=== PATIENT | female | born 1980 | race Caucasian/White ===

== ENCOUNTER → 2019-09-13 | Outpatient (CLI) | payer BC ==
[2019-09-13 16:25] LABS: Basophils # (A) 0.1 k/uL (0-0.2); Basophils % (A) 2 %; Eosinophils % (A) 1 %; HCT 36.8 % (34.0-46.0); HGB 11.9 gm/dL (11.4-16.0); Lymphocytes # (A) 1.8 k/uL (1.0-4.8); Lymphocytes % (A) 45 %; MCH 29.6 pg (25.0-35.0); MCHC 32.3 g/dL (31.0-37.0); MCV 91.6 fL (80.0-100.0); Mean Platelet Volume 8.5; Monocytes # (A) 0.3 k/uL (0-1.0); Monocytes % (A) 8 %; Neutrophils # (A) 1.6 k/uL (1.3-7.7); Neutrophils % (A) 41 %; Platelet Count 162 k/uL (150-450); RBC 4.01 m/uL (3.80-5.40); RDW 12.5 % (11.5-15.5)
== END | disposition home or self-care (01) ==
LOC: LABWHC1 15:50
PROVIDERS: ATTEND Obstetrics & Gynecology
DX: Z01.812 Encounter for preprocedural laboratory examination (principal)
CPT/HCPCS: 36415; 85025

== ENCOUNTER 2019-10-01 07:41 | Day surgery (SDC) | payer BC ==
[2019-09-26 15:54] VITALS: BMI 27.1
[~2019-10-01 07:41] MED LIST: DEXAMETHASONE SOD PHOSPHATE 10 MG/ML 1 ML VIAL IV ONE; LIDOCAINE 1% 20 ML VIAL (10MG/ML) FOR IV START INTRADERMA PRN; MIDAZOLAM 2 MG/2 ML VIAL IV PRN; ONDANSETRON 4 MG/2 ML VIAL IVP ONE; Pre Op ABX Message 1 EACH MISC MISCELLANE ONE; fentaNYL (PF) 50 MCG/ML 2 ML AMP IV PRN
[2019-10-01] MEDS: LACTATED RINGERS 1,000 ML IV SCH ×2 (08:27→08:59)
[2019-10-01] MEDS ORDERED: PROPOFOL 10 MG/ML 20 ML VIAL IV ONE (08:55)
[2019-10-01] MEDS ORDERED: MIDAZOLAM 2 MG/2 ML VIAL ONE (08:55)
[2019-10-01] MEDS ORDERED: fentaNYL (PF) 50 MCG/ML 2 ML AMP ONE (08:55)
[2019-10-01] MEDS ORDERED: KETOROLAC 30 MG/ML 1 ML VIAL ONE (08:55)
[2019-10-01] MEDS ORDERED: NEOSTIGMINE 1 MG/ML 10 ML VIAL ONE (08:55)
[2019-10-01] MEDS ORDERED: LIDOCAINE 1% INJ 10MG/ML (20 ML MDV) ONE (08:55)
[2019-10-01] MEDS ORDERED: ROCURONIUM BROMIDE 10 MG/ML 5 ML VIAL IV ONE (08:55)
[2019-10-01] MEDS ORDERED: GLYCOPYRROLATE 0.2 MG/ML 2 ML VIAL ONE (08:55)
[2019-10-01] MEDS ORDERED: BUPIVACAINE (PF) 0.25% 30 ML VIAL SQ ONE ×2 (08:56→09:30)
--- NOTE | 2019-10-01 09:41 | P.OP ---
Date of Procedure: 10/01/19 Preoperative Diagnosis: Undesired fertility Postoperative Diagnosis: Essentially normal-appearing female pelvis Procedure(s) Performed: Laparoscopic tubal ligation with Filshie clips Anesthesia: CARMELO Surgeon: Norma Wilson Estimated Blood Loss (ml): 5 IV fluids (ml): 600 Urine output (ml): 300 Pathology: none sent Condition: stable Operative Findings: Normal-appearing tubes and ovaries. No evidence of endometriosis, adhesions, or other anomalies. Description of Procedure: Patient is brought to the operating suite where a general anesthetic is administered without difficulty. She's placed in the dorsal lithotomy position. The cervix and vagina, perineal body, and abdomen are all prepped and draped in usual sterile fashion. The appropriate timeout is performed to assure proper patient and procedural identification. Urine hCG is negative. Antibiotics are not deemed necessary. Examination under anesthesia reveals a small anteverted uterus with negative adnexa bilaterally. Bladder is drained for 300 mL of clear yellow urine. Weighted speculum was placed into the vagina and the anterior lip of the cervix is grasped with an Allis clamp. A small acorn cannula is placed into the cervix and attached to the Allis clamp, and the speculum is removed. Attention is now drawn to the abdominal cavity. A small infraumbilical incision is made, the varies needle is placed and placement is checked with hanging drop technique. The abdomen is insufflated under low filling pressures of 6-8 mmHg for a total of 4 L of CO2 gas. Ears needle was removed. Uterus is placed in the posterior position and the trochars placed. This gold is then introduced and the placement is noted to be atraumatic. A second incision is made suprapubically, and under direct visualization a second trocar is placed. Placement again is atraumatic. Uterus is placed in the anteverted and lateral postion and the right fallopian tube is visualized in its entirety to the fimbriated end. A Filshie clip is placed in the isthmic portion of the tube with care to traverse the entire diameter of the tube into the mesal salpinx. The same procedure is carried out contralaterally, fimbriated end identified as well for proper placement. Bilaterally the ovaries appear normal. The pelvis is otherwise clean and clear, no adhesions, no endometriosis, no other anomalies noted. CO2 gas was allowed to diffuse and the small fascial incisions are inspected and noted to be clean and dry. 4-0 undyed Monocryl is used in a subcuticular manner to close the incisions. They are injected with a total of 10 mL of quarter percent Marcaine without epinephrine to aid in analgesia. Toradol is given. Instrumentation is removed from the cervix which is clean and dry. All sponge needle and enhancement counts are correct at the end of the procedure. Patient is brought back to recovery room in very good condition with stable vital signs including blood pressure 114/70, pulse 74, 99% O2 saturation. Patient will follow-up with me in the office in 2 weeks.
[2019-10-01 09:52] VITALS: TEMP 97.3
[2019-10-01 10:59] VITALS: PULSE 59; RESP 18
[2019-10-01] MEDS ORDERED: HYDROcodone/APAP 5-325MG 1 EACH TAB PO ONE (11:11)
[2019-10-01 12:17] VITALS: BP 122/76
== END 2019-10-01 12:17 | disposition home or self-care (01) ==
LOC: OR 07:41
PROVIDERS: ATTEND Obstetrics & Gynecology
DX: Z30.2 Encounter for sterilization (principal)
CPT/HCPCS: 81025; 58671; J2250; J1100; J2710; J2405; J2001; J3010; J1885; J2704

== ENCOUNTER → 2019-10-18 | Outpatient (CLI) | payer BC ==
--- NOTE | 2019-10-19 10:13 | MM ---
Reason for exam: screening (asymptomatic). Baseline mammogram. History: Family history of breast cancer in mother at age 50. Took hormonal contraceptives beginning at age 15. Physical Findings: Nurse did not find any significant physical abnormalities on exam. MG Screening Mammo w CAD Bilateral CC and MLO view(s) were taken. The breast tissue is heterogeneously dense. This may lower the sensitivity of mammography. There is an obscured oval left upper outer quadrant mass at posterior depth. Bilateral upper outer quadrant focal asymmetries at middle posterior depth on the right and posterior depth on the left. These results were verbally communicated with the patient and result sheet given to the patient on 10/18/19. ASSESSMENT: Incomplete: need additional imaging evaluation, BI-RAD 0 RECOMMENDATION: Special view mammogram of both breasts.
--- NOTE | 2019-10-19 10:22 | MM ---
Reason for exam: additional evaluation requested from abnormal screening. History: Family history of breast cancer in mother at age 50. Took hormonal contraceptives beginning at age 15. Physical Findings: Breast exam preformed at baseline screening. MG Work Up Mamm w CAD BILAT Bilateral spot compression CC, spot compression MLO, and LM view(s) were taken. The breast tissue is heterogeneously dense. This may lower the sensitivity of mammography. There is a 4mm persistent left upper outer quadrant mass at posterior depth. Right focal asymmetry improves but does not entirely resolve. 5.5-6.5cm from nipple. Precautionary ultrasound will be performed. These results were verbally communicated with the patient and result sheet given to the patient on 10/18/19. ASSESSMENT: Incomplete: need additional imaging evaluation, BI-RAD 0 RECOMMENDATION: Ultrasound of both breasts.
--- NOTE | 2019-10-19 10:27 | USB ---
Reason for exam: additional evaluation requested from abnormal screening. History: Family history of breast cancer in mother at age 50. Took hormonal contraceptives beginning at age 15. US Breast Workup Limited LISBETH Right limited breast ultrasound including focal area of concern, retroareolar and axilla demonstrates no cystic or solid lesion seen. Left limited breast ultrasound including focal area of concern, retroareolar and axilla demonstrates a 0.9 x 0.6 x 0.4cm cystic, benign lesion at 2 o'clock. Right scanned 9-12 o'clock. Left scanned 12-3 o'clock. No other solid or cystic lesions. These results were verbally communicated with the patient and result sheet given to the patient on 10/18/19. ASSESSMENT: Probably benign, BI-RAD 3 RECOMMENDATION: Follow-up diagnostic mammogram of both breasts in 6 months.
== END | disposition home or self-care (01) ==
LOC: RADMAMWWP 15:05
PROVIDERS: ATTEND Obstetrics & Gynecology
DX: Z12.31 Encounter for screening mammogram for malignant neoplasm of breast (principal); R92.8 Other abnormal and inconclusive findings on diagnostic imaging of breast
CPT/HCPCS: 77066; 77067

== ENCOUNTER → 2021-08-10 | Outpatient (CLI) | payer BC ==
--- NOTE | 2021-08-12 11:15 | MM ---
Reason for exam: screening (asymptomatic). Last mammogram was performed 1 year and 10 months ago. History: Patient is nulliparous. Family history of breast cancer in mother at age 50. Took hormonal contraceptives beginning at age 15. Physical Findings: A clinical breast exam by your physician is recommended on an annual basis and results should be correlated with mammographic findings. MG Screening Mammo w CAD Bilateral CC and MLO view(s) were taken. Prior study comparison: October 18, 2019, bilateral MG work up mamm w CAD BILAT. October 18, 2019, bilateral MG screening mammo w CAD. The breast tissue is heterogeneously dense. This may lower the sensitivity of mammography. There is chronic nodularity bilaterally. No significant changes when compared with prior studies. ASSESSMENT: Negative, BI-RAD 1 RECOMMENDATION: Routine screening mammogram of both breasts in 1 year. Patient should continue monthly self breast exams. A negative report should not preclude additional follow up of suspicious palpable abnormalities.
== END | disposition home or self-care (01) ==
LOC: RADMAMWWP 16:24
PROVIDERS: ATTEND Family Medicine
DX: Z12.31 Encounter for screening mammogram for malignant neoplasm of breast (principal); Z80.3 Family history of malignant neoplasm of breast
CPT/HCPCS: 77067

== ENCOUNTER → 2024-05-14 | Outpatient (CLI) | payer BC ==
--- NOTE | 2024-05-15 09:35 | MM ---
Reason for Exam: Screening (asymptomatic). Last mammogram was performed 2 year(s) and 9 month(s) ago. Patient History: Menarche at age 15. Patient has no children. Hormonal Contraceptives, from age 15 until age 39. Mother had breast cancer, age 50. Last menstrual period: 05/04/2024 Risk Values: Xiomy 5 year model risk: 1.3%. NCI Lifetime model risk: 16.8%. Prior Study Comparison: 10/18/2019 Bilateral Screening Mammogram, [facility]. 10/18/2019 Bilateral Diagnostic Mammogram, [facility]. 08/10/2021 Bilateral Screening Mammogram, [facility]. Tissue Density: The breasts are heterogeneously dense, which may obscure small masses. Findings: Analyzed By CAD. There is no suspicious group of microcalcifications or new suspicious mass in either breast. Overall Assessment: Benign, BI-RAD 2 Management: Screening Mammogram of both breasts in 1 year. . Patient should continue monthly self-breast exams. A clinical breast exam by your physician is recommended on an annual basis. This exam should not preclude additional follow-up of suspicious palpable abnormalities. Note on Xiomy scores and lifetime risk: 1. A Xiomy score greater than 3% is considered moderate risk. If this is the case, consider specialist referral to assess eligibility for a risk reducing agent. 2. If overall lifetime risk for the development of breast cancer is 20% or higher, the patient may qualify for future screening with alternating mammogram and breast MRI. [facility], , 05/15/2024 9:32 AM. Electronically signed and approved by: Rigo Oden M.D. Radiolog[facility]
== END | disposition home or self-care (01) ==
LOC: RADMAMWWP 16:18
PROVIDERS: ATTEND Family Medicine
CPT/HCPCS: 77067